=== PATIENT | male | born 1985 | race Caucasian/White ===

== ENCOUNTER 2016-10-13 17:57 | Emergency (ER) | payer OTHER ==
[2016-10-13 18:09] VITALS: RESP 16; TEMP 98.6
[2016-10-13] MEDS ORDERED: LETS SOLN TOPICAL 1 EA SYR TP ONE (18:09)
--- NOTE | 2016-10-13 18:12 | EDPHY ---
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 He slipped on some gravel and sustained a abrasion/avulsion to the palm of the right hand. This occurred within the past few hours. The wound was debrided in the feel they are unable to get all the debris out, thus he is here. It is moderately painful with palpation. No pain at rest. No numbness or tingling. No injury elsewhere. Tetanus is up-to-date as of this year. No motor sensory changes. No other associated complaints or modifying factors. REVIEW OF SYSTEMS: Ten systems reviewed and are negative unless otherwise noted in the HPI EXAMINATION General Appearance: Alert, no distress Cardiovascular: Pulses normal throughout. Symmetric radial pulses are 2+. Brisk cap refill Neurological: A&O, sensory symmetric, strength symmetric Skin: Warm and dry. There is a 3 cm curvilinear area of tissue abrasion laceration on the palm of the right hand. This is a tissue flap. Debris noted underneath it. Neurovascular intact distal to this area of injury. Extremities: Right hand is tender over the palm involving the laceration. There is no tenderness of the fingers. No tenderness of the snuffbox. Range of motion is fully intact including interossei. Psychiatric: Mood and affect normal DIFFERENTIAL DIAGNOSES: Including but not limited to skin laceration, abrasion, foreign body MDM: 6:09 p.m. Abrasion to palm of the right hand. This was sustained at work while sliding gravel. He has no laceration that needs repair. There is a area of skin flap with some gravel underneath that. I have applied lidocaine injection, we will place let solution. Proceed with irrigation debridement. No repairable wound. 6:30 p.m. After the patient has had topical anesthetic in place I re-evaluated the hand. I decided to excisionally debride the flap of skin to allow for better wound care and debridement of the gravel prior to discharge home. This was done without complication. 7:10 p.m. Wound has been extensively debrided. No foreign body remains post debridement. He remains neurovascular intact. The wound has been dressed with bacitracin and sterile gauze. We discussed wound care with daily to twice daily bacitracin and dressing changes. He is to follow up with his primary care physician or [facility] for definitive care. Return to ER for worsening pain, fever, purulence from the wound. He is comfortable with this plan discharge home neurovascular intact and in stable condition PROCEDURE: Procedure: Excisional debridement Indication: Hand laceration with tissue avulsion foreign body Description: After topical anesthesia and local injection of 1% lidocaine plain , 2 mL, the skin flap on the palm of the right hand was pulled back with sterile suture forceps. The skin was then excised with skin sutures. There was a section of skin approximately 1.5 x 1.5 cm, curvilinear that was removed without complication. Patient tolerated the procedure well. Neurovascular intact post procedure ED Precautions: Worsening pain. Erythema, edema, cyanosis, pallor, paresthesia or anesthesia. SUPERVISION: This patient was independently evaluated without direct examination by the attending physician. Case was discussed with attending physician. - History Smoking Status: Never smoked - Objective Vital Signs: Initial Vital Signs Temperature (C) 98.6 F 10/13/16 18:07 Heart Rate 98 10/13/16 18:07 Respiratory Rate 16 10/13/16 18:07 Blood Pressure 128/75 H 10/13/16 18:07 O2 Sat (%) 93 10/13/16 18:07 O2 Delivery Mode Room Air Allergies/Adverse Reactions: No Known Allergies Allergy (Verified 10/13/16 18:09) Home Medications: Medication Instructions Recorded NK [No Known Home Meds] 01/17/15 Medications Given: Discontinued Medications Tetracaine/Epinephrine/Lidocaine (Lets Soln Topical) 1 ea TP EDNOW ONE Stop: 10/13/16 18:10 Last Admin: 10/13/16 18:14 Dose: 1 ea Departure - Departure Disposition: Home, Routine, Self-Care Clinical Impression: Hand laceration Qualifiers: Encounter type: initial encounter Foreign body presence: with foreign body Laterality: right Qualified Code(s): S61.421A - Laceration with foreign body of right hand, initial encounter Condition: Good Instructions: Laceration (ED), Debridement (ED), Abrasion (ED), Acute Wounds ( ED) Additional Instructions: Wound care as discussed twice daily. Follow up with primary care physician. Return to ER for any signs of infection bleeding Referrals: Patient,NotPresent [Unknown] - As per Instructions Physician,Emergency Dept, MD [Medical Doctor] - As per Instructions
[2016-10-13 19:20] VITALS: BP 134/80; PULSE 68; O2SAT 94
== END 2016-10-13 19:19 | disposition home or self-care (01) ==
PROC: 0JBK0ZZ Excision of Left Hand Subcutaneous Tissue and Fascia, Open Approach (ICD-10-PCS; principal; 2016-10-13)
DX: S61.412A Laceration without foreign body of left hand, initial encounter (principal); W18.40XA Slipping, tripping and stumbling without falling, unspecified, initial encounter; Y92.89 Other specified places as the place of occurrence of the external cause; Y99.0 Civilian activity done for income or pay; Y93.89 Activity, other specified

== ENCOUNTER → 2017-11-06 | Outpatient (CLI) | payer OTHER | LOC: FCPNEURO 21:00 | PROVIDERS: ATTEND Psychiatry & Neurology Sleep Medicine | DX: G47.33 Obstructive sleep apnea (adult) (pediatric) (principal) ==

== ENCOUNTER 2018-04-26 20:54 | Emergency (ER) | payer OTHER ==
[2018-04-26 21:00] VITALS: BP 133/71
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
[2018-04-26 23:26] LABS: HEPATITIS C ANTIBODY TOTAL NEGATIVE (NEGATIVE); HIV TYPE 1 AND 2 NEGATIVE (NEGATIVE)
== END 2018-04-26 22:03 | disposition home or self-care (01) ==
DX: S86.911A Strain of unspecified muscle(s) and tendon(s) at lower leg level, right leg, initial encounter (principal); Z77.21 Contact with and (suspected) exposure to potentially hazardous body fluids; Y08.89XA Assault by other specified means, initial encounter; Y99.0 Civilian activity done for income or pay
CPT/HCPCS: 86707-90; G0472